=== PATIENT | male | born 1995 | race Caucasian/White ===

== ENCOUNTER 2022-12-29 19:37 | Inpatient (IN) | payer OTHER ==
[~2022-12-29] VITALS: Ht 180.3 cm; Wt 80.0 kg
[2022-12-29] MEDS ORDERED: BOOSTRIX VACCINE (TETANUS/DIPHTH/ACEL. PERTUSSIS) 0.5ML SYR IM.IMMUN ONE (20:35)
[2022-12-29 21:15] LABS: HEMATOCRIT 43.6 % (42.0-52.0); HEMOGLOBIN 14.3 g/dl (13.5-17.5); MEAN CORPUSCULAR HEMOGLOBIN 30.5 pg (27.0-33.0); MEAN CORPUSCULAR HGB CONC 32.8 g/dl (32.0-36.5); PLATELET COUNT, AUTOMATED 168 10^3/uL (150-450); RED BLOOD COUNT 4.69 10^6/uL (4.30-6.10); WHITE BLOOD COUNT 12.9 10^3/uL (4.0-10.0)
[2022-12-29 21:38] LABS: ETHYL ALCOHOL (ETHANOL) < 0.003 % (0.000-0.010)
[2022-12-29 21:39] LABS: SALICYLATE LEVEL < 3.0 MG/DL (<30)
[2022-12-29 21:40] LABS: ALBUMIN 4.3 G/DL (3.2-5.2); ALKALINE PHOSPHATASE 64 U/L (46-116); ALT/SGPT 85 U/L (7.0-40); AST/SGOT 201 U/L (<34); BILIRUBIN,TOTAL 2.6 MG/DL (0.3-1.2); BLOOD UREA NITROGEN 29 MG/DL (9-23); CALCIUM LEVEL 9.4 MG/DL (8.5-10.1); CARBON DIOXIDE LEVEL 23 MMOL/L (20-31); CHLORIDE LEVEL 100 MMOL/L (98-107); CREATININE FOR GFR 0.77 MG/DL (0.70-1.30); GLOMERULAR FILTRATION RATE > 60.0 (>60); GLUCOSE, FASTING 81 MG/DL (60-100); POTASSIUM SERUM 3.8 MMOL/L (3.5-5.1); SODIUM LEVEL 137 MMOL/L (136-145); TOTAL PROTEIN 6.7 G/DL (5.7-8.2)
[2022-12-29 21:43] LABS: THYROID STIMULATING HORMONE 0.578 uIU/ML (0.55-4.78)
[2022-12-29 21:48] LABS: ACETAMINOPHEN LEVEL < 2.0 UG/ML (10.0-20.0)
[2022-12-29 22:04] LABS: PHENCYCLIDINE URINE NEGATIVE (NEGATIVE)
[2022-12-29 22:05] LABS: AMPHETAMINES LEVEL URINE NEGATIVE (NEGATIVE); BARBITURATES URINE NEGATIVE (NEGATIVE); COCAINE METABOLITE URINE NEGATIVE (NEGATIVE); METHADONE URINE NEGATIVE (NEGATIVE); OPIATES URINE NEGATIVE (NEGATIVE)
[2022-12-29 22:07] LABS: BENZODIAZEPINES URINE NEGATIVE (NEGATIVE)
[2022-12-29 22:17] LABS: CANNABINOIDS URINE POSITIVE (NEGATIVE)
[2022-12-29] MEDS ORDERED: traZODone 50 MG TAB PO PRN (22:40)
[2022-12-29] MEDS ORDERED: MAALOX 30 ML SUSP *UDC PO PRN (22:40)
[2022-12-29] MEDS ORDERED: ACETAMINOPHEN TAB 650MG DOSE (2X325MG) PO PRN (22:40)
[2022-12-29] MEDS ORDERED: MOM 30ML SUSPENSION UDC PO PRN (22:40)
[2022-12-29] MEDS ORDERED: IBUPROFEN 400MG TAB PO PRN (22:40)
[2022-12-29] MEDS ORDERED: diphenhydrAMINE 25MG CAP PO PRN (22:40)
[2022-12-29 23:22] LABS: HEPATITIS B CORE ANTIBODY IGM NEGATIVE (NEGATIVE)
[2022-12-30 00:18] LABS: HEPATITIS C VIRUS ABY INDEX 0.04 INDEX (<0.8)
[2022-12-30 02:00] VITALS: BP 119/73; TEMP 98.6; O2SAT 100
[2022-12-30] MEDS ORDERED: LORazepam 2 MG TAB PO PRN (03:00)
[2022-12-30] MEDS: THIAMINE 100 MG TAB PO SCH ×2 (05:52→21:00)
[2022-12-30 06:57] VITALS: BP 126/67; TEMP 98.3; O2SAT 99
[2022-12-30 10:00] VITALS: BP 119/75
[2022-12-30] MEDS ORDERED: MULT400T10 PO (10:00)
[2022-12-30] MEDS ORDERED: MELA10CA6 PO (10:01)
[2022-12-30] MEDS ORDERED: HOME MED LIST COMPLETE! XX SCH (10:05)
[2022-12-30] MEDS: FOLIC ACID 1MG TAB PO SCH (10:15)
[2022-12-30] MEDS: MULTIVITAMINS/MINERALS THERAP 1 TAB PO SCH (10:16)
[2022-12-30] MEDS: BACITRACIN OINTMENT 30GM TUBE TOP SCH (13:39)
[2022-12-30 18:00] VITALS: BP 133/83
[2022-12-30 18:05] VITALS: BP 133/83; TEMP 99.7; O2SAT 100
[2022-12-30] MEDS ORDERED: OLANZapine 2.5MG TABLET PO SCH (21:00)
[2022-12-31] MEDS: THIAMINE 100 MG TAB PO SCH ×2 (08:39→20:09)
[2022-12-31] MEDS: FOLIC ACID 1MG TAB PO SCH (08:39)
[2022-12-31] MEDS: MULTIVITAMINS/MINERALS THERAP 1 TAB PO SCH (08:40)
[2022-12-31] MEDS: BACITRACIN OINTMENT 30GM TUBE TOP SCH (09:15)
[2022-12-31] MEDS: FLUoxetine 10 MG CAP PO SCH (11:47)
[2022-12-31 14:00] VITALS: BP 123/70
[2022-12-31 18:41] VITALS: BP 116/75; TEMP 98.6; O2SAT 100
[2022-12-31] MEDS: OLANZapine 5 MG TAB PO SCH (20:09)
[2022-12-31 21:17] VITALS: BP 114/62
[2023-01-01 05:45] VITALS: BP 132/76; TEMP 98.6; O2SAT 98
[2023-01-01 07:51] LABS: CHOLESTEROL RISK RATIO 2.6 (<5); HDL CHOLESTEROL 68.7 MG/DL (>40); LDL CHOLESTEROL 89.1 MG/DL (<100); NON-HDL-C 110.3 MG/DL
[2023-01-01] MEDS ORDERED: SERTRALINE HCL 50 MG TAB PO SCH (09:00)
[2023-01-01] MEDS: FLUoxetine 10 MG CAP PO SCH (09:36)
[2023-01-01] MEDS: BACITRACIN OINTMENT 30GM TUBE TOP SCH (10:58)
[2023-01-01] MEDS: OLANZapine 5 MG TAB PO SCH (20:22)
[2023-01-02 05:58] VITALS: BP 120/75; TEMP 98.3; O2SAT 98
[2023-01-02] MEDS: FLUoxetine 10 MG CAP PO SCH (09:02)
[2023-01-02] MEDS: BACITRACIN OINTMENT 30GM TUBE TOP SCH (13:13)
[2023-01-02] MEDS: OLANZapine 5 MG TAB PO SCH (21:23)
[2023-01-03 06:23] VITALS: BP 136/75; TEMP 98.1; O2SAT 98
[2023-01-03] MEDS: FLUoxetine 20MG CAP PO SCH (08:41)
[2023-01-03] MEDS: BACITRACIN OINTMENT 30GM TUBE TOP SCH (09:52)
[2023-01-03 16:33] VITALS: BP 110/60; TEMP 98.5; O2SAT 96
[2023-01-03] MEDS: OLANZapine 5 MG TAB PO SCH (21:09)
[2023-01-04 06:59] VITALS: BP 147/68; TEMP 98.9; O2SAT 99
[2023-01-04] MEDS: FLUoxetine 20MG CAP PO SCH (08:48)
[2023-01-04 16:29] VITALS: BP 121/74; TEMP 97.7; O2SAT 100
[2023-01-04] MEDS: BACITRACIN OINTMENT 30GM TUBE TOP SCH (18:54)
[2023-01-04] MEDS: OLANZapine 5 MG TAB PO SCH (21:10)
[2023-01-05] MEDS: FLUoxetine 20MG CAP PO SCH (08:00)
[2023-01-05] MEDS: BACITRACIN OINTMENT 30GM TUBE TOP SCH (15:53)
[2023-01-05 16:36] VITALS: BP 120/69; TEMP 98.3; O2SAT 100
[2023-01-05 19:55] LABS: HEMATOCRIT 42.9 % (42.0-52.0); HEMOGLOBIN 13.7 g/dl (13.5-17.5); MEAN CORPUSCULAR HEMOGLOBIN 30.3 pg (27.0-33.0); MEAN CORPUSCULAR HGB CONC 31.9 g/dl (32.0-36.5); MEAN CORPUSCULAR VOLUME 94.9 fl (80.0-96.0); PLATELET COUNT, AUTOMATED 375 10^3/uL (150-450); RED BLOOD COUNT 4.52 10^6/uL (4.30-6.10); WHITE BLOOD COUNT 7.7 10^3/uL (4.0-10.0)
[2023-01-05 20:14] LABS: BLOOD UREA NITROGEN 14 MG/DL (9-23); CALCIUM LEVEL 8.7 MG/DL (8.5-10.1); CARBON DIOXIDE LEVEL 32 MMOL/L (20-31); CHLORIDE LEVEL 105 MMOL/L (98-107); CREATININE FOR GFR 0.75 MG/DL (0.70-1.30); GLOMERULAR FILTRATION RATE > 60.0 (>60); GLUCOSE, FASTING 94 MG/DL (60-100); POTASSIUM SERUM 3.9 MMOL/L (3.5-5.1); SODIUM LEVEL 141 MMOL/L (136-145)
[2023-01-05 20:26] LABS: PROCALCITONIN <0.04 ng/ml
[2023-01-05] MEDS: OLANZapine 2.5MG TABLET PO SCH (22:06)
[2023-01-05] MEDS: DOXYCYCLINE HYCLATE 100MG TABLET PO SCH (22:06)
[2023-01-06] MEDS: BACITRACIN OINTMENT 30GM TUBE TOP SCH (08:11)
[2023-01-06] MEDS: DOXYCYCLINE HYCLATE 100MG TABLET PO SCH ×2 (08:38→21:40)
[2023-01-06] MEDS: FLUoxetine 20MG CAP PO SCH (08:39)
[2023-01-06] MEDS ORDERED: ISOVUE-370 76% 100ML VIAL As Ordered ONE (13:26)
[2023-01-06 18:57] VITALS: BP 147/68; TEMP 97.5
[2023-01-06] MEDS: OLANZapine 2.5MG TABLET PO SCH (21:41)
[2023-01-07] MEDS: FLUoxetine 20MG CAP PO SCH (08:30)
[2023-01-07] MEDS: DOXYCYCLINE HYCLATE 100MG TABLET PO SCH ×2 (08:30→21:12)
[2023-01-07] MEDS: BACITRACIN OINTMENT 30GM TUBE TOP SCH (08:31)
[2023-01-07 16:28] VITALS: BP 114/61; TEMP 98.2; O2SAT 97
[2023-01-07] MEDS: OLANZapine 10 MG TAB PO SCH (21:12)
[2023-01-08] MEDS: DOXYCYCLINE HYCLATE 100MG TABLET PO SCH ×2 (08:09→21:14)
[2023-01-08] MEDS: FLUoxetine 20MG CAP PO SCH (08:09)
[2023-01-08] MEDS: BACITRACIN OINTMENT 30GM TUBE TOP SCH (15:32)
[2023-01-08] MEDS: OLANZapine 10 MG TAB PO SCH (21:14)
[2023-01-09] MEDS: BACITRACIN OINTMENT 30GM TUBE TOP SCH (09:00)
[2023-01-09] MEDS: FLUoxetine 20MG CAP PO SCH (09:07)
[2023-01-09] MEDS: DOXYCYCLINE HYCLATE 100MG TABLET PO SCH ×2 (09:07→21:20)
[2023-01-09] MEDS: OLANZapine 10 MG TAB PO SCH (21:20)
[2023-01-10] MEDS: BACITRACIN OINTMENT 30GM TUBE TOP SCH (08:36)
[2023-01-10] MEDS: FLUoxetine 20MG CAP PO SCH (09:03)
[2023-01-10] MEDS: DOXYCYCLINE HYCLATE 100MG TABLET PO SCH ×2 (09:03→20:02)
[2023-01-10 18:08] VITALS: BP 118/60; TEMP 98.4
[2023-01-10] MEDS: OLANZapine 10 MG TAB PO SCH (20:02)
[2023-01-11] MEDS: BACITRACIN OINTMENT 30GM TUBE TOP SCH (09:08)
[2023-01-11] MEDS: DOXYCYCLINE HYCLATE 100MG TABLET PO SCH ×2 (09:08→23:09)
[2023-01-11] MEDS: FLUoxetine 20MG CAP PO SCH (09:08)
[2023-01-11 18:01] VITALS: BP 119/63; TEMP 97.9; O2SAT 100
[2023-01-11] MEDS: OLANZapine 10 MG TAB PO SCH (23:09)
[2023-01-12 06:53] VITALS: BP 156/86; TEMP 97.7; O2SAT 99
[2023-01-12] MEDS: OLANZapine 5 MG TAB PO SCH (09:39)
[2023-01-12] MEDS: DOXYCYCLINE HYCLATE 100MG TABLET PO SCH ×2 (09:39→21:42)
[2023-01-12] MEDS: FLUoxetine 20MG CAP PO SCH (09:39)
[2023-01-12] MEDS: BACITRACIN OINTMENT 30GM TUBE TOP SCH (09:40)
[2023-01-12 16:21] VITALS: BP 115/63; TEMP 99.1; O2SAT 99
[2023-01-12] MEDS: OLANZapine 10 MG TAB PO SCH (21:42)
[2023-01-13] MEDS: BACITRACIN OINTMENT 30GM TUBE TOP SCH (09:00)
[2023-01-13] MEDS: DOXYCYCLINE HYCLATE 100MG TABLET PO SCH ×2 (10:05→21:04)
[2023-01-13] MEDS: FLUoxetine 20MG CAP PO SCH (10:05)
[2023-01-13] MEDS: OLANZapine 10 MG TAB PO SCH ×3 (10:05→21:22)
[2023-01-13] MEDS: OLANZapine 5 MG TAB PO SCH (10:08)
[2023-01-13 18:30] VITALS: BP 126/75; TEMP 98; O2SAT 99
[2023-01-14] MEDS: FLUoxetine 20MG CAP PO SCH (08:27)
[2023-01-14] MEDS: BACITRACIN OINTMENT 30GM TUBE TOP SCH (08:27)
[2023-01-14] MEDS: DOXYCYCLINE HYCLATE 100MG TABLET PO SCH ×2 (08:27→21:26)
[2023-01-14] MEDS: OLANZapine 5 MG TAB PO SCH (08:27)
[2023-01-14 18:50] VITALS: BP 115/68; TEMP 98.6
[2023-01-14] MEDS: OLANZapine 10 MG TAB PO SCH (21:27)
[2023-01-15] MEDS: BACITRACIN OINTMENT 30GM TUBE TOP SCH (09:00)
[2023-01-15] MEDS: OLANZapine 5 MG TAB PO SCH (09:19)
[2023-01-15] MEDS: FLUoxetine 20MG CAP PO SCH (09:19)
[2023-01-15] MEDS: DOXYCYCLINE HYCLATE 100MG TABLET PO SCH ×2 (09:20→20:09)
[2023-01-15] MEDS: OLANZapine 10 MG TAB PO SCH (20:09)
[2023-01-16] MEDS: BACITRACIN OINTMENT 30GM TUBE TOP SCH (09:00)
[2023-01-16] MEDS: OLANZapine 5 MG TAB PO SCH (09:21)
[2023-01-16] MEDS: FLUoxetine 20MG CAP PO SCH (09:21)
[2023-01-16] MEDS: DOXYCYCLINE HYCLATE 100MG TABLET PO SCH ×2 (09:21→21:50)
[2023-01-16] MEDS: OLANZapine 10 MG TAB PO SCH (21:50)
[2023-01-17] MEDS: BACITRACIN OINTMENT 30GM TUBE TOP SCH (09:00)
[2023-01-17] MEDS: OLANZapine 5 MG TAB PO SCH (09:18)
[2023-01-17] MEDS: FLUoxetine 20MG CAP PO SCH (09:18)
[2023-01-17] MEDS: DOXYCYCLINE HYCLATE 100MG TABLET PO SCH ×2 (09:18→20:54)
[2023-01-17 18:16] VITALS: BP 121/74; TEMP 97.6; O2SAT 95
[2023-01-17] MEDS: OLANZapine 10 MG TAB PO SCH (20:54)
[2023-01-18 06:41] VITALS: BP 118/68; TEMP 98.9; O2SAT 97
[2023-01-18] MEDS: BACITRACIN OINTMENT 30GM TUBE TOP SCH (09:00)
[2023-01-18] MEDS: OLANZapine 5 MG TAB PO SCH (09:40)
[2023-01-18] MEDS: FLUoxetine 20MG CAP PO SCH (09:40)
[2023-01-18] MEDS: DOXYCYCLINE HYCLATE 100MG TABLET PO SCH ×2 (09:40→21:07)
[2023-01-18] MEDS: OLANZapine 10 MG TAB PO SCH (21:06)
[2023-01-19] MEDS: BACITRACIN OINTMENT 30GM TUBE TOP SCH (09:00)
[2023-01-19] MEDS: OLANZapine 5 MG TAB PO SCH (09:37)
[2023-01-19] MEDS: DOXYCYCLINE HYCLATE 100MG TABLET PO SCH ×2 (09:37→20:37)
[2023-01-19] MEDS: FLUoxetine 20MG CAP PO SCH (09:37)
[2023-01-19] MEDS: OLANZapine 10 MG TAB PO SCH (20:37)
[2023-01-20] MEDS: DOXYCYCLINE HYCLATE 100MG TABLET PO SCH ×2 (09:35→20:55)
[2023-01-20] MEDS: FLUoxetine 20MG CAP PO SCH (09:35)
[2023-01-20] MEDS: OLANZapine 5 MG TAB PO SCH (09:35)
[2023-01-20] MEDS ORDERED: OLAN15TA13 PO (15:20)
[2023-01-20] MEDS ORDERED: FLUO40CA PO (15:20)
[2023-01-20] MEDS: OLANZapine 10 MG TAB PO SCH (20:55)
[2023-01-21] MEDS: OLANZapine 5 MG TAB PO SCH (09:28)
[2023-01-21] MEDS: FLUoxetine 20MG CAP PO SCH (09:28)
[2023-01-21] MEDS: DOXYCYCLINE HYCLATE 100MG TABLET PO SCH (09:28)
== END 2023-01-21 13:04 | disposition home or self-care (01) | DRG 751 ==
LOC: M ED 19:37 → M ED INP 22:36 → M PSY 12-30 01:51
PROVIDERS: ADMIT Student in an Organized Health Care Education/Training Program; ATTEND Student in an Organized Health Care Education/Training Program
DX: F32.3 Major depressive disorder, single episode, severe with psychotic features (principal); F20.9 Schizophrenia, unspecified; F10.10 Alcohol abuse, uncomplicated; R74.01 Elevation of levels of liver transaminase levels; F17.200 Nicotine dependence, unspecified, uncomplicated; S51.812A Laceration without foreign body of left forearm, initial encounter; X78.9XXA Intentional self-harm by unspecified sharp object, initial encounter; Y92.9 Unspecified place or not applicable; Z56.0 Unemployment, unspecified; Z91.51 Personal history of suicidal behavior; Z91.52 Personal history of nonsuicidal self-harm; Z20.822 Contact with and (suspected) exposure to COVID-19

== ENCOUNTER 2023-05-21 17:13 | Emergency (ER) | payer MEDICAID, OTHER ==
[~2023-05-21] VITALS: Ht 185.4 cm; Wt 81.8 kg
[~2023-05-21 17:13] MED LIST: FLUO40CA PO; MELA10CA6 PO; MULT400T10 PO; OLAN15TA13 PO
[2023-05-21 18:58] LABS: HEMATOCRIT 48.6 % (42.0-52.0); HEMOGLOBIN 15.8 g/dl (13.5-17.5); MEAN CORPUSCULAR HGB CONC 32.5 g/dl (32.0-36.5); MEAN CORPUSCULAR VOLUME 92.2 fl (80.0-96.0); PLATELET COUNT, AUTOMATED 266 10^3/uL (150-450); RED BLOOD COUNT 5.27 10^6/uL (4.30-6.10); WHITE BLOOD COUNT 7.5 10^3/uL (4.0-10.0)
[2023-05-21 19:02] LABS: BARBITURATES URINE NEGATIVE (NEGATIVE)
[2023-05-21 19:03] LABS: AMPHETAMINES LEVEL URINE NEGATIVE (NEGATIVE); BENZODIAZEPINES URINE NEGATIVE (NEGATIVE); COCAINE METABOLITE URINE NEGATIVE (NEGATIVE); METHADONE URINE NEGATIVE (NEGATIVE); OPIATES URINE NEGATIVE (NEGATIVE); PHENCYCLIDINE URINE NEGATIVE (NEGATIVE)
[2023-05-21 19:06] LABS: CANNABINOIDS URINE POSITIVE (NEGATIVE)
[2023-05-21 19:36] LABS: ETHYL ALCOHOL (ETHANOL) 0.003 % (0.000-0.010)
[2023-05-21 19:38] LABS: ALBUMIN 4.5 G/DL (3.2-5.2); ALKALINE PHOSPHATASE 68 U/L (46-116); ALT/SGPT 14 U/L (7.0-40); AST/SGOT 15 U/L (<34); BILIRUBIN,DIRECT 0.3 MG/DL (<0.4); BILIRUBIN,TOTAL 0.7 MG/DL (0.3-1.2); BLOOD UREA NITROGEN 12 MG/DL (9-23); CALCIUM LEVEL 9.5 MG/DL (8.5-10.1); CARBON DIOXIDE LEVEL 26 MMOL/L (20-31); CHLORIDE LEVEL 106 MMOL/L (98-107); CREATININE FOR GFR 0.85 MG/DL (0.70-1.30); GLOMERULAR FILTRATION RATE > 60.0 (>60); GLUCOSE, FASTING 102 MG/DL (60-100); POTASSIUM SERUM 4.4 MMOL/L (3.5-5.1); SALICYLATE LEVEL < 3.0 MG/DL (<30); SODIUM LEVEL 139 MMOL/L (136-145); TOTAL PROTEIN 7.1 G/DL (5.7-8.2)
[2023-05-21 19:40] LABS: THYROID STIMULATING HORMONE 0.357 uIU/ML (0.55-4.78)
[2023-05-21] MEDS ORDERED: FLUO40CA PO ×2 (20:39→21:57)
[2023-05-21] MEDS ORDERED: OLAN15TA13 PO ×2 (20:39→21:57)
[2023-05-21] MEDS ORDERED: HOME MED LIST COMPLETE! XX SCH (20:40)
[2023-05-21] MEDS ORDERED: HYDR-3363 PO (21:57)
[2023-05-21 22:29] VITALS: BP 128/78; TEMP 98; O2SAT 98
[2023-05-21] MEDS: OLANZapine 2.5MG TABLET PO ONE (22:29)
== END 2023-05-21 22:32 | disposition home or self-care (01) ==
LOC: M ED 17:13
DX: F34.1 Dysthymic disorder (principal); E05.90 Thyrotoxicosis, unspecified without thyrotoxic crisis or storm; Z91.51 Personal history of suicidal behavior

== ENCOUNTER 2023-09-24 14:13 | Inpatient (IN) | payer OTHER ==
[~2023-09-24] VITALS: Ht 182.9 cm; Wt 79.5 kg
[~2023-09-24 14:13] MED LIST changes: +HYDR-3363 PO
[2023-09-24 14:51] LABS: HEMATOCRIT 45.4 % (42.0-52.0); HEMOGLOBIN 14.6 g/dl (13.5-17.5); MEAN CORPUSCULAR HEMOGLOBIN 30.9 pg (27.0-33.0); MEAN CORPUSCULAR HGB CONC 32.2 g/dl (32.0-36.5); MEAN CORPUSCULAR VOLUME 96.2 fl (80.0-96.0); PLATELET COUNT, AUTOMATED 243 10^3/uL (150-450); RED BLOOD COUNT 4.72 10^6/uL (4.30-6.10); WHITE BLOOD COUNT 15.3 10^3/uL (4.0-10.0)
[2023-09-24 15:05] LABS: ETHYL ALCOHOL (ETHANOL) < 0.003 % (0.000-0.010)
[2023-09-24 15:07] LABS: ALBUMIN 4.4 G/DL (3.2-5.2); ALKALINE PHOSPHATASE 72 U/L (46-116); ALT/SGPT 38 U/L (7.0-40); AST/SGOT 51 U/L (<34); BILIRUBIN,DIRECT 0.4 MG/DL (<0.4); BILIRUBIN,TOTAL 1.2 MG/DL (0.3-1.2); BLOOD UREA NITROGEN 21 MG/DL (9-23); CALCIUM LEVEL 9.1 MG/DL (8.5-10.1); CARBON DIOXIDE LEVEL 24 MMOL/L (20-31); CHLORIDE LEVEL 104 MMOL/L (98-107); CREATININE FOR GFR 1.03 MG/DL (0.70-1.30); GLOMERULAR FILTRATION RATE > 60.0 (>60); GLUCOSE, FASTING 72 MG/DL (60-100); POTASSIUM SERUM 5.2 MMOL/L (3.5-5.1); SALICYLATE LEVEL < 3.0 MG/DL (<30); SODIUM LEVEL 138 MMOL/L (136-145); TOTAL PROTEIN 6.8 G/DL (5.7-8.2)
[2023-09-24 15:09] LABS: THYROID STIMULATING HORMONE 0.333 uIU/ML (0.55-4.78)
[2023-09-24 15:28] LABS: BARBITURATES URINE NEGATIVE (NEGATIVE); BENZODIAZEPINES URINE NEGATIVE (NEGATIVE); COCAINE METABOLITE URINE NEGATIVE (NEGATIVE)
[2023-09-24 15:29] LABS: METHADONE URINE NEGATIVE (NEGATIVE); OPIATES URINE NEGATIVE (NEGATIVE); PHENCYCLIDINE URINE NEGATIVE (NEGATIVE)
[2023-09-24 15:36] LABS: AMPHETAMINES LEVEL URINE POSITIVE (NEGATIVE); CANNABINOIDS URINE POSITIVE (NEGATIVE)
[2023-09-24] MEDS ORDERED: VYVA30CA4 PO (15:45)
[2023-09-24] MEDS ORDERED: HYDR-3363 PO (15:45)
[2023-09-24] MEDS ORDERED: ZYPR5TAB2 PO (15:45)
[2023-09-24] MEDS ORDERED: HOME MED LIST COMPLETE! XX SCH (15:50)
[2023-09-24] MEDS: SOD POLYSTYRENE SULFONATE SUSP 15GM 60ML UD PO ONE (16:13)
[2023-09-25] MEDS: OLANZapine 5 MG TAB PO ONE ×2 (10:33→21:11)
[2023-09-25] MEDS: NICOTINE 21MG/24HR 1 EA TRANSDERMAL TD ONE (10:33)
[2023-09-26] MEDS ORDERED: OLANZapine 5 MG TAB PO PRN (09:50)
[2023-09-26] MEDS: NICOTINE 21MG/24HR 1 EA TRANSDERMAL TD SCH (11:40)
[2023-09-26] MEDS ORDERED: IBUPROFEN 400MG TAB PO PRN (13:30)
[2023-09-26] MEDS ORDERED: MAALOX 30 ML SUSP *UDC PO PRN (13:30)
[2023-09-26] MEDS ORDERED: MOM 30ML SUSPENSION UDC PO PRN (13:30)
[2023-09-26] MEDS ORDERED: ACETAMINOPHEN TAB 650MG DOSE (2X325MG) PO PRN (13:30)
[2023-09-26 14:20] VITALS: BP 136/83; TEMP 97.7; O2SAT 100
[2023-09-26] MEDS: OLANZapine 5 MG TAB PO PRN (22:32)
[2023-09-27 06:30] VITALS: BP 127/74; TEMP 98.1; O2SAT 100
[2023-09-27] MEDS ORDERED: NICOTINE 21MG/24HR 1 EA TRANSDERMAL TD SCH (09:00)
[2023-09-27] MEDS: NICOTINE 21MG/24HR 1 EA TRANSDERMAL TD SCH (09:14)
[2023-09-27 18:22] VITALS: BP 120/69; TEMP 98.2
[2023-09-27 18:37] LABS: BASO % 0.3 % (0.0-1.0); EOS # 0.1 10^3/uL (0.0-0.5); EOS % 2.3 % (0.0-3.0); HEMATOCRIT 45.5 % (42.0-52.0); HEMOGLOBIN 15.1 g/dl (13.5-17.5); LYMPH # 1.3 10^3/uL (1.5-5.0); LYMPH % 20.8 % (24.0-44.0); MEAN CORPUSCULAR HEMOGLOBIN 31.1 pg (27.0-33.0); MEAN CORPUSCULAR HGB CONC 33.2 g/dl (32.0-36.5); MEAN CORPUSCULAR VOLUME 93.6 fl (80.0-96.0); MONO # 0.7 10^3/uL (0.0-0.8); MONO % 11.1 % (2.0-8.0); NEUTROPHILS % 65.3 % (36.0-66.0); PLATELET COUNT, AUTOMATED 246 10^3/uL (150-450); RED BLOOD COUNT 4.86 10^6/uL (4.30-6.10); WHITE BLOOD COUNT 6.1 10^3/uL (4.0-10.0)
[2023-09-27 19:11] LABS: BLOOD UREA NITROGEN 10 MG/DL (9-23); CALCIUM LEVEL 9.6 MG/DL (8.5-10.1); CARBON DIOXIDE LEVEL 32 MMOL/L (20-31); CHLORIDE LEVEL 104 MMOL/L (98-107); CREATININE FOR GFR 1.08 MG/DL (0.70-1.30); GLOMERULAR FILTRATION RATE > 60.0 (>60); GLUCOSE, FASTING 103 MG/DL (60-100); POTASSIUM SERUM 4.4 MMOL/L (3.5-5.1); SODIUM LEVEL 141 MMOL/L (136-145)
[2023-09-27 19:14] LABS: FREE T4 1.24 NG/DL (0.89-1.76)
[2023-09-27] MEDS: OLANZapine 10 MG TAB PO SCH (21:22)
[2023-09-28 05:58] VITALS: BP 108/57; TEMP 97.4; O2SAT 100
[2023-09-28 17:53] VITALS: BP 125/75; TEMP 98.6
[2023-09-29 06:24] VITALS: BP 124/79; TEMP 97; O2SAT 99
[2023-09-29 18:00] VITALS: BP 111/70; TEMP 98.5
[2023-09-30 06:17] VITALS: BP 128/74; TEMP 97.8; O2SAT 99
[2023-09-30 07:33] LABS: CHOLESTEROL RISK RATIO 3.69 (<5); HDL CHOLESTEROL 46.3 MG/DL (>40); LDL CHOLESTEROL 104.7 MG/DL (<100); NON-HDL-C 124.7 MG/DL
[2023-09-30 16:19] VITALS: BP 112/70; TEMP 97.8; O2SAT 100
[2023-09-30] MEDS: diphenhydrAMINE 25MG CAP PO PRN (16:40)
[2023-10-01 06:22] VITALS: BP 113/62; TEMP 96.9; O2SAT 100
[2023-10-01 16:22] VITALS: BP 125/62; TEMP 98.1; O2SAT 99
[2023-10-02 06:15] VITALS: BP 107/61; TEMP 98.3; O2SAT 98
[2023-10-02 15:16] VITALS: BP 133/58; TEMP 98.2; O2SAT 99
[2023-10-02] MEDS: traZODone 50 MG TAB PO PRN (23:27)
[2023-10-03 06:11] VITALS: BP 106/52; TEMP 97.3; O2SAT 98
[2023-10-03] MEDS ORDERED: TRAZ-252 PO (09:09)
[2023-10-03] MEDS ORDERED: OLAN1TAB20 PO ×2 (09:09→10:51)
[2023-10-03] MEDS ORDERED: OLAN1TAB16 PO (09:09)
== END 2023-10-03 11:11 | disposition home or self-care (01) | DRG 751 ==
LOC: M ED 14:13 → M ED INP 09-26 13:28 → M PSY 09-26 14:19
PROVIDERS: ADMIT Student in an Organized Health Care Education/Training Program; ATTEND Student in an Organized Health Care Education/Training Program
DX: F32.3 Major depressive disorder, single episode, severe with psychotic features (principal); E87.5 Hyperkalemia; R45.850 Homicidal ideations; F20.9 Schizophrenia, unspecified; F17.210 Nicotine dependence, cigarettes, uncomplicated; Z79.899 Other long term (current) drug therapy; Z91.51 Personal history of suicidal behavior; Z56.0 Unemployment, unspecified